=== PATIENT | female | born 1990 | race African-American/Black ===

== ENCOUNTER 2017-01-28 11:47 | Emergency (ER) | payer BC ==
[2017-01-28 12:09] VITALS: BP 108/68
--- NOTE | 2017-01-28 12:57 | ER Document Report ---
ED Medical Screen (RME) - General Chief Complaint: Abdominal Pain Stated Complaint: ABDOMINAL PAIN Time Seen by Provider: 01/28/17 12:54 Notes: Complaining of pain in the lower abdomen since Wednesday. Has been vomiting, about 6 times total since Wednesday. Denies diarrhea. Remains nauseated. No urinary tract symptoms. Denies fever. LMP 5/3, on no control. PMH: . On no regular prescription medications. TRAVEL OUTSIDE OF THE [place] IN LAST 30 DAYS: No - Related Data Allergies/Adverse Reactions: cyclobenzaprine HCl [From Flexeril] Allergy (Verified 01/28/17 12:07) Past Medical History Renal/ Medical History: Denies: Hx Peritoneal Dialysis Physical Exam - Vital signs Vitals: Temp Pulse Resp BP Pulse Ox 98.2 F 80 14 108/68 99 01/28/17 12:07 01/28/17 12:07 01/28/17 12:07 01/28/17 12:07 01/28/17 12:07 Course - Vital Signs Vital signs: Temp Pulse Resp BP Pulse Ox 98.2 F 80 14 108/68 99 01/28/17 12:07 01/28/17 12:07 01/28/17 12:07 01/28/17 12:07 01/28/17 12:07
[2017-01-28 13:39] LABS: ABSOLUTE BASOPHILS # (AUTO) 0.1 10^3/uL (0.0-0.2); ABSOLUTE EOSINOPHILS # (AUTO) 0.2 10^3/uL (0.0-0.6); ABSOLUTE LYMPHOCYTES (AUTO) 2.3 10^3/uL (0.5-4.7); ABSOLUTE MONOCYTES (AUTO) 0.6 10^3/uL (0.1-1.4); ABSOLUTE NEUT (AUTO) 3.9 10^3/uL (1.7-8.2); BASOPHILS % (AUTO) 0.9 % (0-2); EOSINOPHILS % (AUTO) 2.3 % (0-6); HEMOGLOBIN 14.3 g/dL (12.0-15.5); HGB HCT DIFFERENCE -0.1; LYMPHOCYTES % (AUTO) 32.4 % (13-45); MEAN CORPUSCULAR HEMOGLOBIN 30.4 pg (27.0-33.4); MEAN CORPUSCULAR HGB CONC 33.2 g/dL (32.0-36.0); MEAN CORPUSCULAR VOLUME 92 fl (80-97); MONOCYTES % (AUTO) 8.3 % (3-13); RED CELL DISTRIBUTION WIDTH 12.8 % (11.5-14.0); SEGMENTED NEUTROPHILS % (AUTO) 56.1 % (42-78)
[2017-01-28 13:46] LABS: ALANINE AMINOTRANSFERASE 22 U/L (9-52); ALBUMIN 4.2 g/dL (3.5-5.0); ALKALINE PHOSPHATASE 70 U/L (38-126); ANION GAP 9 (5-19); ASPARTATE AMINO TRANSFERASE 20 U/L (14-36); BILIRUBIN,DIRECT 0.2 mg/dL (0.0-0.4); BILIRUBIN,TOTAL 0.5 mg/dL (0.2-1.3); BLOOD UREA NITROGEN 11 mg/dL (7-20); CALCIUM 9.8 mg/dL (8.4-10.2); CARBON DIOXIDE 25 mmol/L (22-30); CHLORIDE 106 mmol/L (98-107); CREATININE RESULT 0.76 mg/dL (0.52-1.25); GLUCOSE 86 mg/dL (75-110); LIPASE 49.1 U/L (23-300); SODIUM 140.2 mmol/L (137-145); TOTAL PROTEIN 7.2 g/dL (6.3-8.2)
[2017-01-28 14:06] LABS: APPEARANCE,URINE CLEAR; BILIRUBIN,URINE NEGATIVE (NEGATIVE); GLUCOSE, URINE NEGATIVE (NEGATIVE); KETONES,URINE NEGATIVE (NEGATIVE); LEUKOCYTE ESTERASE,URINE NEGATIVE (NEGATIVE); NITRITE,URINE NEGATIVE (NEGATIVE); PROTEIN,URINE NEGATIVE (NEGATIVE); UROBILINOGEN,URINE NEGATIVE mg/dL (<2.0)
== END 2017-01-28 14:10 | disposition left against medical advice (07) ==
LOC: ER 11:47
DX: R10.30 Lower abdominal pain, unspecified (principal); R11.2 Nausea with vomiting, unspecified; Z88.8 Allergy status to other drugs, medicaments and biological substances; Z53.20 Procedure and treatment not carried out because of patient's decision for unspecified reasons
CPT/HCPCS: 36415; 80053; 81001; 83690; 84703; 85025; 99281

== ENCOUNTER 2017-01-29 18:04 | Emergency (ER) | payer BC ==
--- NOTE | 2017-01-29 20:23 | ER Document Report ---
ED General - General Chief Complaint: Abdominal Pain Stated Complaint: ABDOMINAL PAIN Time Seen by Provider: 01/29/17 20:22 Mode of Arrival: Ambulatory Information source: Patient TRAVEL OUTSIDE OF THE [place] IN LAST 30 DAYS: No - HPI Notes: Patient is a pleasant 26-year-old black female presents emergency department with report that she started with lower pelvic pain 4 days ago followed by some vomiting related to the pain and then she had one loose bowel movement today. No hematemesis or bright red blood per rectum. No exposures to anyone else has been sick. The abdominal pain has persisted and now she is having some mild pain radiating straight through to her lower back. Patient denies any fever or chills. She reports no chest pain or shortness of breath or cough. Patient has a history of being on control pills which were recently discontinued and she had her last menstrual period started 2 weeks ago lasted a week and the pain came on shortly after the vaginal bleeding subsided. She denies any vaginal discharge or concern for sexually transmitted disease, although she has had trichomonas in the past. The patient was seen Yesterday and had a normal CBC normal chemistries normal lipase negative urinalysis and negative test, but she was unable to finish her emergency department stay related to long wait times. - Related Data Allergies/Adverse Reactions: cyclobenzaprine HCl [From Flexeril] Allergy (Verified 01/29/17 18:07) Past Medical History - General Information source: Patient - Social History Smoking Status: Current Every Day Smoker Smoking Education Provided: Yes Frequency of alcohol use: None Drug Abuse: None Lives with: Family Family History: Reviewed & Not Pertinent Patient has suicidal ideation: No Patient has homicidal ideation: No Renal/ Medical History: Denies: Hx Peritoneal Dialysis Review of Systems - Review of Systems Notes: REVIEW OF SYSTEMS: CONSTITUTIONAL : Denies fever, chills, or sweats. Denies recent illness. EENT: Denies eye, ear, throat, or mouth pain or symptoms. Denies nasal or sinus congestion or discharge. Denies throat, tongue, or mouth swelling or difficulty swallowing. CARDIOVASCULAR: Denies chest pain. Denies palpitations or racing or irregular heart beat. Denies ankle edema. RESPIRATORY: Denies cough, cold, or chest congestion. Denies shortness of breath, difficulty breathing, or wheezing. GASTROINTESTINAL: Denies distention. Denies blood in vomitus, stools, or per rectum. Denies black, tarry stools. Denies constipation. GENITOURINARY: Denies difficulty urinating, painful urination, burning, frequency, blood in urine, or discharge. FEMALE GENITOURINARY: Denies current vaginal bleeding. most recent denies vaginal discharge or odor. Menstrual cycles extremely heavy according to the patient. MUSCULOSKELETAL: Denies neck pain or stiffness. Denies joint pain or swelling. SKIN: Denies rash, lesions or sores. HEMATOLOGIC : Denies easy bruising or bleeding. LYMPHATIC: Denies swollen, enlarged glands. NEUROLOGICAL: Denies confusion or altered mental status. Denies passing out or loss of consciousness. Denies dizziness or lightheadedness. Denies headache. Denies weakness or paralysis or loss of use of either side. Denies problems with gait or speech. Denies sensory loss, numbness, or tingling. Denies seizures. PSYCHIATRIC: Denies anxiety or stress. Denies depression, suicidal ideation, or homicidal ideation. ALL OTHER SYSTEMS REVIEWED AND NEGATIVE. Dictation was performed using [employer] voice recognition software Physical Exam - Vital signs Vitals: Temp Pulse Resp BP Pulse Ox 98.8 F 104 H 16 124/71 100 01/29/17 18:08 01/29/17 18:08 01/29/17 18:08 01/29/17 18:08 01/29/17 18:08 - Notes Notes: PHYSICAL EXAMINATION: GENERAL: Well-appearing, well-nourished and in no acute distress. HEAD: Atraumatic, normocephalic. EYES: Pupils equal round and reactive to light, extraocular movements intact, conjunctiva are normal. ENT: Nares patent, oropharynx clear without exudates. Moist mucous membranes. NECK: Normal range of motion, supple without lymphadenopathy LUNGS: Breath sounds clear to auscultation bilaterally and equal. No wheezes rales or rhonchi. HEART: Regular rate and rhythm without murmurs ABDOMEN: Soft, nondistended abdomen. No guarding, no rebound. No masses appreciated. Tender through the lower midline pelvic region. There is some radiation of the pain straight through to the back below the CVA region, more to the posterior pelvis. No bony tenderness or deformity or erythema. Female : Normal external female genitalia. Cervix with a small nabothian cyst noted. There was cervical motion tenderness and mild uterine tenderness. There was minimal adnexal discomfort, but no adnexal mass noted. Mild whitish discharge with slight fishy odor noted. Musculoskeletal: Normal range of motion, no pitting or edema. No cyanosis. NEUROLOGICAL: Cranial nerves grossly intact. Normal speech, normal gait. Normal sensory, motor exams PSYCH: Normal mood, normal affect. SKIN: Warm, Dry, normal turgor, no rashes or lesions noted. Course - Re-evaluation Re-evalutation: 01/29/17 21:46 Patient was given Rocephin IM and doxycycline by mouth and Flagyl by mouth and Deweese. Patient was already taking Aleve at home. Patient upon evaluation today and yesterday, there is no evidence for GI bleed, diabetes, UTI, diverticulitis or appendicitis., 01/29/17 21:49 01/29/17 21:50 - Vital Signs Vital signs: Temp Pulse Resp BP Pulse Ox 98.8 F 104 H 16 124/71 100 01/29/17 18:08 01/29/17 18:08 01/29/17 18:08 01/29/17 18:08 01/29/17 18:08 Discharge - Discharge Clinical Impression: Pelvic inflammatory disease (PID), Bacterial vaginosis Condition: Stable Disposition: HOME, SELF-CARE Instructions: Doxycycline ([facility]), Metronidazole ([facility]), Pelvic Inflammatory Disease ([facility]), Vaginosis, Bacterial ([facility]) Additional Instructions: Return to the ED in case of severe pain, fever, vomiting. Do not drink alcohol while taking the antibiotic Flagyl. Continue taking Aleve for pain, and then Deweese for additional pain relief. Prescriptions: Hydrocodone/Acetaminophen [Deweese 5-325 Tablet] 1 each PO Q4HP PRN #20 tablet PRN Reason: Ondansetron [Zofran Odt 4 mg Tablet] 1 tab PO Q8HP PRN #10 tab.rapdis PRN Reason: For Nausea/Vomiting Doxycycline Hyclate 100 mg PO BID #20 capsule Metronidazole [Flagyl 500 mg Tablet] 500 mg PO BID #14 tablet Forms: Return to Work
[2017-01-29] MEDS ORDERED: DOXYCYCLINE HYCLATE 100 MG TABLET PO ONE (21:06)
[2017-01-29] MEDS ORDERED: CEFTRIAXONE INJ 1000 MG VIAL IM ONE (21:10)
[2017-01-29] MEDS ORDERED: METRONIDAZOLE 500 MG TABLET PO ONE (21:51)
[2017-01-29] MEDS ORDERED: HYDROCODONE/ACETAMINOPHEN 5-325 MG 6 TAB/DSPK PO PRN (21:52)
[2017-01-29] MEDS ORDERED: LIDOCAINE 1% INJ-PF (10 MG/ML) 30 ML SDV ONE (22:31)
[2017-01-29 22:44] LABS: CHLAM PCR NOT DETECTED (NOT DETECT)
[2017-01-29 23:34] VITALS: BP 114/58
== END 2017-01-29 23:00 | disposition home or self-care (01) ==
LOC: ER 18:04
DX: N73.9 Female pelvic inflammatory disease, unspecified (principal); N76.0 Acute vaginitis; R10.9 Unspecified abdominal pain; R10.2 Pelvic and perineal pain; F17.200 Nicotine dependence, unspecified, uncomplicated
CPT/HCPCS: 99284; 96372; 87210; 87491; 87591; J0696

== ENCOUNTER 2018-07-11 08:27 | Outpatient (CLI) | payer SELFPAY ==
[2018-07-11] MEDS ORDERED: HYDROXYZINE PAMOATE 50 MG CAPSULE PO ONE (08:37)
[2018-07-11] MEDS ORDERED: HYDROXYZINE PAMOATE 50 MG CAPSULE ONE (08:39)
[2018-07-11 09:16] LABS: APPEARANCE,URINE CLEAR; BILIRUBIN,URINE NEGATIVE (NEGATIVE); COLOR,URINE YELLOW; GLUCOSE, URINE NEGATIVE (NEGATIVE); KETONES,URINE NEGATIVE (NEGATIVE); LEUKOCYTE ESTERASE,URINE NEGATIVE (NEGATIVE); NITRITE,URINE NEGATIVE (NEGATIVE); PROTEIN,URINE NEGATIVE (NEGATIVE); URINE SPECIFIC GRAVITY 1.023
[2018-07-11 09:25] LABS: URINE AMPHETAMINES SCREEN NEGATIVE; URINE BARBITURATES SCREEN NEGATIVE; URINE BENZODIAZEPINES SCREEN NEGATIVE; URINE COCAINE SCREEN NEGATIVE; URINE MARIJUANA (THC) SCREEN NEGATIVE; URINE METHADONE SCREEN NEGATIVE; URINE PHENCYCLIDINE SCREEN NEGATIVE
[2018-07-11 10:22] LABS: T.VAGINALIS (WET MOUNT) NO TRICHOMONAS SEEN; YEAST (WET MOUNT) NO YEAST SEEN
[2018-07-11 10:23] LABS: BACTERIA (WET MOUNT) 3+ BACTERIA SEEN; EPITHELIALS (WET MOUNT) 3+ EPITHELIALS SEEN; WBCS (WET MOUNT) 2+ WBCS SEEN
[2018-07-11 14:28] LABS: CHLAM PCR NOT DETECTED (NOT DETECT); GON PCR NOT DETECTED (NOT DETECT)
== END 2018-07-11 10:44 | disposition home or self-care (01) ==
LOC: LC 08:27
PROVIDERS: ATTEND Obstetrics & Gynecology
PROC: 4A1HXCZ Monitoring of Products of Conception, Cardiac Rate, External Approach (ICD-10-PCS; principal; 2018-07-11)
DX: O47.02 False labor before 37 completed weeks of gestation, second trimester (principal); O99.282 Endocrine, nutritional and metabolic diseases complicating pregnancy, second trimester; E86.0 Dehydration; Z3A.20 20 weeks gestation of pregnancy
CPT/HCPCS: 80307; 81001; 87210; 87491; 87591